=== PATIENT | male | born 1940 | race Caucasian/White ===

== ENCOUNTER 2023-12-12 08:19 | Day surgery (SDC) | payer OTHER, SELFPAY ==
[2023-12-12] VITALS (10 sets, daily range): BP systolic 107–158; BP diastolic 58–75; BMI 22.7
--- NOTE | 2023-12-12 10:07 | ITS.CL.CATH ---
[employer] - Catheterization
Cardiac Catheterization
Procedure Report:
CARDIAC CATHETERIZATION REPORT
Date of Procedure: 12/12/2023
Referring: Joshua Ellis DO
Indication: Persistent exertional chest discomfort despite negative stress test
�
HEMODYNAMIC DATA
AO: 132/72
LV: 132/12
�
LEFT VENTRICULOGRAPHY: Normal left ventricular wall motion with EF 61%
�
CORONARY ANGIOGRAPHY
Dominance: Right
Left Main: Normal
LAD: Focal 30% mid LAD stenosis. 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
Circumflex: Trivial luminal irregularities
RCA: Normal dominant vessel
�
Closure Device: 6 Irish Angio-Seal RFA. Of note, access was easily obtained via the right radial artery. A standard table J-wire would not pass into the brachial artery and a hydrophilic small J tipped wire was noted to take a 360 degree loop in
the proximal right radial region. Angiography confirmed a nonnegotiable radial loop and we pivoted to a right femoral approach
�
Radiation (mGy): 134
DAP (cm2.Gy): 10.9
Fluoroscopy time: 4.0 minutes
�
CONCLUSIONS
1:�Normal left ventricular wall motion with EF 61%
2:�Mild nonobstructive CAD as described
3. Continue aspirin/statin therapy with goal LDL less than 70
�
�
Copy to: Joshua Ellis DO, CHANTELLE Shepherd ([facility])
�
Tico Fried MD, LOCATED WITHIN [facility], [facility]
[2023-12-12] MEDS: NSS 1000 IV ×2 (10:57→13:25)
--- NOTE | 2023-12-12 11:11 | PTCARENOTE ---
bedside report received. Pt w/o complaints at this time. See vitals.
Will continue to monitor pt.
== END 2023-12-12 14:00 | disposition home or self-care (01) ==
LOC: CATH 08:19
PROVIDERS: ATTENDING PHYSICIAN Internal Medicine Cardiovascular Disease; OTHER PHYSICIAN Internal Medicine Cardiovascular Disease
DX: I25.10 Atherosclerotic heart disease of native coronary artery without angina pectoris (principal); R07.89 Other chest pain; Z79.82 Long term (current) use of aspirin
CPT/HCPCS: 93458; C1760; C1769; C1894; Q9967